=== PATIENT | female | born 1955 | race Caucasian/White ===

== ENCOUNTER → 2021-12-25 | Outpatient (CLI) | payer MEDICARE ==
[~2021-12-25] MED LIST: PERCOCET 5-3251 EACH PO; ZOFRAN ODT 4 MG4 MG PO
== END ==
LOC: LAB 12:14
DX: R10.9 Unspecified abdominal pain (principal)
CPT/HCPCS: 36415; 82565; 84520

== ENCOUNTER → 2021-12-28 | Outpatient (CLI) | payer MEDICARE | LOC: KOH-I 12-24 09:30 | DX: R31.9 Hematuria, unspecified (principal); R10.9 Unspecified abdominal pain; N20.2 Calculus of kidney with calculus of ureter | CPT/HCPCS: 74176 ==

== ENCOUNTER → 2022-04-29 | Outpatient (CLI) | payer MEDICARE | LOC: KOH-I 10:30 | DX: Z87.891 Personal history of nicotine dependence (principal) | CPT/HCPCS: 71271 ==

== ENCOUNTER → 2022-06-05 | Outpatient (CLI) | payer MEDICARE | LOC: HEART 5 09:18 | DX: R06.02 Shortness of breath (principal) | CPT/HCPCS: 94060; 94729 ==